=== PATIENT | female | born 1955 | race African-American/Black ===

== ENCOUNTER 2022-01-05 07:17 | Emergency (ER) | payer OTHER ==
[2022-01-05 07:30] VITALS: BP 100/84; PULSE 84; RESP 18; TEMP 97.8; BMI 26.8
[2022-01-05] MEDS ORDERED: IBUPROFEN 400 MG TABLET (FP) PO ONE ×2 (07:33→07:40)
== END 2022-01-05 08:43 | disposition home or self-care (01) ==
LOC: FER 07:17
DX: S80.02XA Contusion of left knee, initial encounter (principal); W01.0XXA Fall on same level from slipping, tripping and stumbling without subsequent striking against object, initial encounter
CPT/HCPCS: 73560-TC-LT-FY; 99283-25

== ENCOUNTER 2022-01-25 07:13 | Emergency (ER) | payer OTHER ==
[2022-01-25 07:18] VITALS: BP 148/84; PULSE 81; RESP 20; TEMP 97.8; BMI 29.8
[2022-01-25] MEDS ORDERED: METHOCARBAMOL 500 MG TABLET PO ONE (08:01)
[2022-01-25] MEDS ORDERED: LIDOCAINE 5% TOPICAL PATCH TP ONE (08:01)
[2022-01-25] MEDS ORDERED: METHOCARBAMOL 500 MG TABLET ONE (08:03)
[2022-01-25] MEDS ORDERED: LIDOCAINE 5% TOPICAL PATCH ONE (08:03)
[2022-01-25] MEDS ORDERED: LIDOCAINE PATCH REMOVAL MC SCH (22:00)
== END 2022-01-25 10:06 | disposition home or self-care (01) ==
LOC: FER 07:13
DX: M54.41 Lumbago with sciatica, right side (principal)
CPT/HCPCS: 72100-TC-FY; 99283-25

== ENCOUNTER 2022-02-26 04:27 | Day surgery (SDC) | payer OTHER ==
[2022-02-25 10:42] VITALS: BMI 29.3
[2022-02-26] MEDS ORDERED: DEXAMETHASONE SOD PHOSPHATE 10 MG/1 ML VIAL ONE ×2 (08:06→12:16)
[2022-02-26] MEDS ORDERED: LIDOCAINE HCL/PF 1% SDV 5ML VIAL ONE (08:10)
[2022-02-26] MEDS ORDERED: SODIUM CHLORIDE 0.9% P/F 10 ML VIAL IJ ONE (08:34)
[2022-02-26 11:15] VITALS: RESP 18
[2022-02-26] MEDS ORDERED: DEXAMETHASONE SOD PHOSPHATE 10 MG/1 ML VIAL IVPUSH ONE (13:15)
[2022-02-26] MEDS ORDERED: LIDOCAINE HCL 1% PRESERVATIVE FREE - 30ML VIAL EP ONE (13:15)
[2022-02-26 14:27] VITALS: TEMP 98.7
[2022-02-26 16:24] VITALS: BP 150/80; PULSE 64
== END 2022-02-26 14:15 | disposition home or self-care (01) ==
LOC: JASU-SURG 04:27
PROVIDERS: ATTEND Pain Medicine Pain Medicine
PROC: 3E0R33Z Introduction of Anti-inflammatory into Spinal Canal, Percutaneous Approach (ICD-10-PCS; 2022-02-26)
PROC: 3E0R3BZ Introduction of Anesthetic Agent into Spinal Canal, Percutaneous Approach (ICD-10-PCS; principal; 2022-02-26 12:15)
DX: M54.16 Radiculopathy, lumbar region (principal)
CPT/HCPCS: 76000-TC-FY; J1100